=== PATIENT | female | born 1990 | race Hispanic/Latino ===

== ENCOUNTER 2018-01-15 23:10 | Emergency (ER) | payer BC ==
[2018-01-16] MEDS ORDERED: NA CHLORIDE 0.9% 1,000 ML ONE (00:43)
[2018-01-16 01:00] LABS: Absolute Lymphocytes (CBC) 2.1 K/uL (0.7-4.9); Absolute Monocytes 0.8 K/uL (0.1-1.3); Absolute Neutrophil 10.1 K/uL (1.8-8.0); Basophils % 0.3 % (0-1.3); Eosinophils % 1.3 % (0-4.4); Hematocrit 40.5 % (36.0-45.0); Lymphocytes % 15.6 % (15.3-44.8); MCH 30.9 pg (27.0-35.0); MCV 87.9 fL (80-100); MPV 8.8 fL (7.6-11.3); Monocytes % 5.9 % (3.3-12.3)
[2018-01-16 01:23] LABS: BUN Blood Urea Nitrogen 10 mg/dL (7-18); Bicarbonate 26 mmol/L (21-32); Glucose Level 106 mg/dL (74-106); Potassium 3.8 mmol/L (3.5-5.1); Sodium Level 142 mmol/L (136-145)
--- NOTE | 2018-01-16 01:47 | EDPHYS ---
Physician Documentation [facility] Name: Gloria Cruz Age: 27 yrs Sex: Female : 1990 Arrival Date: 01/15/2018 Time: 23:13 Bed 13 Private MD: ED Physician Fredy Gillette HPI: 01/16 00:16 This 27 yrs old Female presents to ER via Ambulatory with complaints of caitie Vaginal bleeding +bleeding. 00:16 The patient presents with vaginal bleeding that is light. Onset: The symptoms/episode caitie began/occurred just prior to arrival. Modifying factors: The symptoms are alleviated by nothing. Associated signs and symptoms: The patient has no apparent associated signs or symptoms. Severity of symptoms: At their worst the symptoms were very mild, in the emergency department the symptoms are unchanged. [employer] OFFICER: 01/15 23:42 LMP N/A - pt is currently jd3 01/16 00:16 2, Full Term 0, Premature 0, 1, Living 0 caitie Historical: - Allergies: 01/15 23:42 PENICILLINS; jd3 - Home Meds: 23:42 Vitamin Oral tab [Active]; jd3 - PMHx: 23:42 None; jd3 - PSHx: 23:42 Tonsillectomy; jd3 - Immunization history:: Adult Immunizations up to date. - Social history:: Smoking status: Patient/guardian denies using tobacco. - Ebola Screening: : Patient negative for fever greater than or equal to 101.5 degrees Fahrenheit, and additional compatible Ebola Virus Disease symptoms. - Family history:: not pertinent. ROS: 01/16 00:16 Constitutional: Negative for fever, chills, and weight loss, Eyes: Negative for injury, caitie pain, redness, and discharge, ENT: Negative for injury, pain, and discharge, Neck: Negative for injury, pain, and swelling, Cardiovascular: Negative for chest pain, palpitations, and edema, Respiratory: Negative for shortness of breath, cough, wheezing, and pleuritic chest pain, Abdomen/GI: Negative for abdominal pain, nausea, vomiting, diarrhea, and constipation, Back: Negative for injury and pain, MS/Extremity: Negative for injury and deformity, Skin: Negative for injury, rash, and discoloration, Neuro: Negative for headache, weakness, numbness, tingling, and seizure, Psych: Negative for depression, anxiety, suicide ideation, homicidal ideation, and hallucinations, Allergy/Immunology: Negative for hives, rash, and allergies, Endocrine: Negative for neck swelling, polydipsia, polyuria, polyphagia, and marked weight changes, Hematologic/Lymphatic: Negative for swollen nodes, abnormal bleeding, and unusual bruising. Abdomen/GI: Positive for abdominal distension. : Positive for vaginal bleeding. Exam: 00:16 Constitutional: This is a well developed, well nourished patient who is awake, alert, caitie and in no acute distress. Head/Face: Normocephalic, atraumatic. Eyes: Pupils equal round and reactive to light, extra-ocular motions intact. Lids and lashes normal. Conjunctiva and sclera are non-icteric and not injected. Cornea within normal limits. Periorbital areas with no swelling, redness, or edema. ENT: Nares patent. No nasal discharge, no septal abnormalities noted. Tympanic membranes are normal and external auditory canals are clear. Oropharynx with no redness, swelling, or masses, exudates, or evidence of obstruction, uvula midline. Mucous membranes moist. Neck: Trachea midline, no thyromegaly or masses palpated, and no cervical lymphadenopathy. Supple, full range of motion without nuchal rigidity, or vertebral point tenderness. No Meningismus. Chest/axilla: Normal chest wall appearance and motion. Nontender with no deformity. No lesions are appreciated. Cardiovascular: Regular rate and rhythm with a normal S1 and S2. No gallops, murmurs, or rubs. Normal PMI, no JVD. No pulse deficits. Respiratory: Lungs have equal breath sounds bilaterally, clear to auscultation and percussion. No rales, rhonchi or wheezes noted. No increased work of breathing, no retractions or nasal flaring. Back: No spinal tenderness. No costovertebral tenderness. Full range of motion. Skin: Warm, dry with normal turgor. Normal color with no rashes, no lesions, and no evidence of cellulitis. MS/ Extremity: Pulses equal, no cyanosis. Neurovascular intact. Full, normal range of motion. Neuro: Awake and alert, GCS 15, oriented to person, place, time, and situation. Cranial nerves II-XII grossly intact. Motor strength 5/5 in all extremities. Sensory grossly intact. Cerebellar exam normal. Normal gait. Psych: Awake, alert, with orientation to person, place and time. Behavior, mood, and affect are within normal limits. 00:16 Abdomen/GI: Inspection: gravid appearance, Bowel sounds: normal, Palpation: abdomen is soft and non-tender, in all quadrants, Liver: no appreciated palpable abnormalities, Hernia: not appreciated. Vital Signs: 01/15 23:42 BP 131 / 88; Pulse 80; Resp 16 S; Temp 98.5(O); Pulse Ox 100% on R/A; Weight 114.31 kg jd3 (R); Height 5 ft. 4 in. (162.56 cm) (R); Pain 06/15; 01/16 00:33 BP 129 / 67; Pulse 84; Resp 18; Pulse Ox 99% on R/A; jb4 02:27 BP 134 / 71; Pulse 75; Resp 18; Pulse Ox 100% on R/A; jb4 01/15 23:42 Body Mass Index 43.26 (114.31 kg, 162.56 cm) jd3 MDM: 01/15 23:58 Patient medically screened. [facility] 01/16 00:19 Data reviewed: vital signs, nurses notes, lab test result(s). [facility] 01/15 23:58 Order name: Quantitative Hcg [facility] 01/15 23:58 Order name: Abo/rh Typing; Complete Time: 01:42 [facility] 01/15 23:58 Order name: Basic Metabolic Panel [facility] 01/15 23:58 Order name: CBC with Diff; Complete Time: 01:42 [facility] 01/16 01:52 Order name: Urine Dipstick--Ancillary (enter results) mo 01/16 01:52 Order name: Urine --Ancillary (enter results) mo 01/15 23:58 Order name: Urine Test (obtain specimen); Complete Time: 02:19 [facility] 01/15 23:58 Order name: IV Saline Lock; Complete Time: 00:40 [facility] 01/15 23:58 Order name: Labs collected and sent; Complete Time: 00:40 [facility] 01/15 23:58 Order name: NPO; Complete Time: 00:17 [facility] 01/15 23:58 Order name: Urine Dipstick-Ancillary (obtain specimen); Complete Time: 02:19 [facility] 01/16 00:15 Order name: FHT's; Complete Time: 02:19 caitie Administered Medications: 00:54 Drug: NS 0.9% 1000 ml Route: IV; Rate: 1 bolus; Site: right antecubital; jb4 02:00 Follow up: Response: No adverse reaction; IV Status: Completed infusion jb4 Disposition: 01/16/18 01:47 Discharged to Home. Impression: related conditions, unspecified, first trimester, related conditions, unspecified, second trimester. - Condition is Stable. - Discharge Instructions: Abdominal Pain During , First Trimester of , Mshy-zq-Fyvz, First Trimester of , Abdominal Pain During , Csna-va-Xukx, Pelvic Rest. - Prescriptions for Vitamin 27- 0.8 mg Oral Tablet - take 1 tablet by ORAL route once daily; 30 tablet. - Medication Reconciliation Form, Thank You Letter, Antibiotic Education, Prescription Opioid Use form. - Follow up: Private Physician; When: 2 - 3 days; Reason: Recheck today's complaints, Continuance of care, Re-evaluation by your physician. Follow up: Anatoly Moncao; When: 2 - 3 days; Reason: Recheck today's complaints, Continuance of care, Re-evaluation by your physician. - Problem is new. - Symptoms have improved. Signatures: Dispatcher [employer] EDMS Fredy Gillette MD MD cha Bryson, James RN RN jb4 Loyd Perales RN RN jd3 Corrections: (The following items were deleted from the chart) 01:47 01:47 01/16/2018 01:47 Discharged to Home. Impression: related conditions, caitie unspecified, first trimester; related conditions, unspecified, second trimester; Threatened . Condition is Stable. Discharge Instructions: Abdominal Pain During , First Trimester of , Hcgt-nq-Ryax, First Trimester of , Abdominal Pain During , Glgc-oy-Rdlb, Pelvic Rest. Prescriptions for Vitamin 27-0.8 mg Oral Tablet - take 1 tablet by ORAL route once daily; 30 tablet. and Forms are Medication Reconciliation Form, Thank You Letter, Antibiotic Education, Prescription Opioid Use. Follow up: Private Physician; When: 2 - 3 days; Reason: Recheck today's complaints, Continuance of care, Re-evaluation by your physician. Follow up: Anatoly Monaco; When: 2 - 3 days; Reason: Recheck today's complaints, Continuance of care, Re-evaluation by your physician. Problem is new. Symptoms have improved. [facility] 02:31 01:47 01/16/2018 01:47 Discharged to Home. Impression: related conditions, jb4 unspecified, first trimester; related conditions, unspecified, second trimester. Condition is Stable. Discharge Instructions: Abdominal Pain During , First Trimester of , Hmjz-ub-Wnli, First Trimester of , Abdominal Pain During , Tdak-be-Cukt, Pelvic Rest. Prescriptions for Vitamin 27-0.8 mg Oral Tablet - take 1 tablet by ORAL route once daily; 30 tablet. and Forms are Medication Reconciliation Form, Thank You Letter, Antibiotic Education, Prescription Opioid Use. Follow up: Private Physician; When: 2 - 3 days; Reason: Recheck today's complaints, Continuance of care, Re-evaluation by your physician. Follow up: Anatoly Monaco; When: 2 - 3 days; Reason: Recheck today's complaints, Continuance of care, Re-evaluation by your physician. Problem is new. Symptoms have improved. caitie
--- NOTE | 2018-01-16 01:47 | ER ---
Nurse's Notes [facility] Name: Gloria Cruz Age: 27 yrs Sex: Female : 1990 Arrival Date: 01/15/2018 Time: 23:13 Bed 13 Private MD: Diagnosis: related conditions, unspecified, first trimester; related conditions, unspecified, second trimester Presentation: 01/15 23:37 Presenting complaint: Patient states: "I am 14 weeks preg and this evening my jd3 and I had intercourse at which point I started to bleed. it is a light spotting. I am also having lower abdominal pain, but I'm not sure if this is just from me being constipated or the bleeding.". Transition of care: patient was not received from another setting of care. Onset of symptoms was January 15, 2018. Risk Assessment: Do you want to hurt yourself or someone else? Patient reports no desire to harm self or others. Initial Sepsis Screen: Does the patient meet any 2 criteria? No. Patient's initial sepsis screen is negative. Does the patient have a suspected source of infection? No. Patient's initial sepsis screen is negative. Care prior to arrival: None. 23:37 Method Of Arrival: Ambulatory [facility] 23:37 Acuity: SHAHID 3 j EVS TECH: 23:42 LMP N/A - pt is currently [facility] 01/16 00:16 2, Full Term 0, Premature 0, 1, Living 0 caitie Historical: - Allergies: 01/15 23:42 PENICILLINS; jd3 - Home Meds: 23:42 Vitamin Oral tab [Active]; jd3 - PMHx: 23:42 None; jd3 - PSHx: 23:42 Tonsillectomy; jd3 - Immunization history:: Adult Immunizations up to date. - Social history:: Smoking status: Patient/guardian denies using tobacco. - Ebola Screening: : Patient negative for fever greater than or equal to 101.5 degrees Fahrenheit, and additional compatible Ebola Virus Disease symptoms. - Family history:: not pertinent. Screenin:43 Abuse screen: Denies threats or abuse. Nutritional screening: No deficits noted. jd3 Tuberculosis screening: No symptoms or risk factors identified. Fall Risk Ambulatory Aid- None/Bed Rest/Nurse Assist (0 pts). Gait- Normal/Bed Rest/Wheelchair (0 pts) Mental Status- Oriented to own ability (0 pts). Total Jarrell Fall Scale indicates No Risk (0-24 pts). Assessment: 23:40 General: Appears in no apparent distress. Behavior is calm, cooperative, appropriate jb4 for age. Pain: Complains of pain in right lower quadrant Pain does not radiate. Pain currently is 2 out of 10 on a pain scale. Quality of pain is described as pinching. Neuro: Level of Consciousness is awake, alert, obeys commands, Oriented to person, place, time, situation. Cardiovascular: Patient's skin is warm and dry. Respiratory: Airway is patent Respiratory effort is even, unlabored, Respiratory pattern is regular, symmetrical. GI: Abdomen is round non-distended, Bowel sounds present X 4 quads. Abd is soft and non tender X 4 quads. : Reports vaginal bleeding that is. EENT: No signs and/or symptoms were reported regarding the EENT system. Derm: Skin is intact, Skin is pink, warm \\T\\ dry. Musculoskeletal: Circulation, motion, and sensation intact. 01/16 00:40 Reassessment: Patient appears in no apparent distress at this time. Patient and/or jb4 family updated on plan of care and expected duration. Pain level reassessed. Patient is alert, oriented x 3, equal unlabored respirations, skin warm/dry/pink. Patient denies pain at this time. 01:40 Reassessment: No changes from previously documented assessment. jb4 02:29 Reassessment: Patient appears in no apparent distress at this time. Patient and/or jb4 family updated on plan of care and expected duration. Pain level reassessed. Patient is alert, oriented x 3, equal unlabored respirations, skin warm/dry/pink. D/c \\T\\ F/u to pt, denies questions concerns. Patient denies pain at this time. Vital Signs: 01/15 23:42 BP 131 / 88; Pulse 80; Resp 16 S; Temp 98.5(O); Pulse Ox 100% on R/A; Weight 114.31 kg jd3 (R); Height 5 ft. 4 in. (162.56 cm) (R); Pain 2/10; 01/16 00:33 BP 129 / 67; Pulse 84; Resp 18; Pulse Ox 99% on R/A; jb4 02:27 BP 134 / 71; Pulse 75; Resp 18; Pulse Ox 100% on R/A; jb4 01/15 23:42 Body Mass Index 43.26 (114.31 kg, 162.56 cm) jd3 Vitals: 02:15 Heart Tones 140. lp1 ED Course: 01/15 23:13 Patient arrived in ED. es 23:40 Triage completed. jd3 23:43 Arm band placed on. jd3 23:45 Patient has correct armband on for positive identification. Placed in gown. Bed in low jd3 position. Call light in reach. Side rails up X 1. Adult w/ patient. 23:45 Pulse ox on. NIBP on. jb4 23:58 Fredy Gillette MD is Attending Physician. [facility] 01/16 00:00 Inserted saline lock: 20 gauge in right antecubital area, using aseptic technique. jb4 Blood collected. 00:00 Initial lab(s) drawn, by de, sent to lab. jb4 00:17 Tanvi Glasgow, RN is Primary Nurse. lp1 01:47 Anatoly Monaco MD is Referral Physician. [facility] 02:30 No provider procedures requiring assistance completed. IV discontinued, intact, jb4 bleeding controlled. Administered Medications: 00:54 Drug: NS 0.9% 1000 ml Route: IV; Rate: 1 bolus; Site: right antecubital; jb4 02:00 Follow up: Response: No adverse reaction; IV Status: Completed infusion jb4 Outcome: 01:47 Discharge ordered by . [facility] 02:25 Discharged to home ambulatory. jb4 02:25 Condition: stable jb4 02:25 Discharge instructions given to patient, Instructed on discharge instructions, follow up and referral plans. medication usage, Demonstrated understanding of instructions, follow-up care, medications, Prescriptions given X 1. 02:31 Patient left the ED. jb4 Signatures: Fredy Gillette MD MD cha Salyer, Edna es Pena, Laura, RN RN lp1 Allen Gould RN RN jb4 Loyd Perales RN RN jd3
[2018-01-16 01:48] LABS: HCG, Quantitative 33887 mIU/mL (1-3)
[2018-01-16 01:54] LABS: Urine Blood TRACE (NEG); Urine Glucose NEGATIVE (NEG); Urine Protein NEGATIVE (NEG); Urine Specific Gravity 1.015 (1.005-1.030)
== END 2018-01-16 02:31 | disposition home or self-care (01) ==
LOC: ER 23:10
DX: O26.851 Spotting complicating pregnancy, first trimester (principal); Z3A.14 14 weeks gestation of pregnancy; Z88.0 Allergy status to penicillin
CPT/HCPCS: 36415; 80048; 81003; 81025; 84702; 85025; 86900; 86901; 96360; 99284; J7030